=== PATIENT | male | born 1950 | race Caucasian/White ===

== ENCOUNTER → 2023-05-21 07:24 | Outpatient (REF) | payer MEDICARE, BC, SELFPAY | LOC: PAVMRI 07:24 | PROVIDERS: ATTENDING PHYSICIAN Specialist; FAMILY PHYSICIAN Internal Medicine | DX: C61 Malignant neoplasm of prostate (principal) | CPT/HCPCS: 72197; A9575 ==

== ENCOUNTER → 2024-03-23 14:03 | Outpatient (REF) | payer MEDICARE, BC, SELFPAY | LOC: CLAB 14:03 | PROVIDERS: ATTENDING PHYSICIAN Specialist | DX: C61 Malignant neoplasm of prostate (principal) | CPT/HCPCS: 88305 ==

== ENCOUNTER → 2024-12-15 08:43 | Outpatient (REF) | payer MEDICARE, BC, SELFPAY ==
[2024-12-15 11:39] LABS: Hematocrit 39.4 % (39.0-52.0); Hemoglobin 13.4 g/dL (13.0-18.0); Mean Corp Hgb Conc. 34.0 g/dL (33.0-37.0); Mean Corpuscular Volume 88.1 fL (80.0-94.0); Platelet Count 114 10^3/uL (130-400); Red Cell Dist. Width 13.0 % (11.5-14.5)
[2024-12-15 12:29] LABS: Blood Urea Nitrogen 25 mg/dl (9-20); Calcium 9.4 mg/dl (8.4-10.2); Carbon Dioxide 27 mmol/L (22-30); Chloride 108 mmol/L (98-107); Glucose 82 mg/dl (70-99); Potassium 4.3 mmol/L (3.5-5.1); Sodium 141 mmol/L (135-145); eGFR > 60.00
== END ==
LOC: SDSPAT 08:43
PROVIDERS: ATTENDING PHYSICIAN Surgery; FAMILY PHYSICIAN Internal Medicine
DX: Z01.818 Encounter for other preprocedural examination (principal)
CPT/HCPCS: 36415; 80048; 85027; 93005

== ENCOUNTER 2025-01-03 06:02 | Day surgery (SDC) | payer MEDICARE, BC, SELFPAY ==
[2024-12-15 13:39] VITALS: BMI 27.4
--- NOTE | 2024-12-15 15:02 | PTCARENOTE ---
Abnormal ECG done 12/15/[address] Alvarez, no further intervention requested.
[2025-01-03] VITALS (7 sets, daily range): BP systolic 110–133; BP diastolic 55–79; BMI 27.4
[2025-01-03] MEDS: TYLENOL 1000 MG PO (08:51)
[2025-01-03] MEDS: NORMOSOL-R/PLASMALYTE-A 1000 IV (08:52)
--- NOTE | 2025-01-03 10:52 | HP.FOC2 ---
Focused History & Physical
Chief Complaint
HPI:
Chief Complaint: Right inguinal hernia, probable left inguinal hernia
HPI / Indication for Planned Procedure: Patient is a 74-year-old male recently seen in outpatient surgical evaluation secondary to a symptomatic right inguinal hernia. He was initially told of the presence of a inguinal hernia after MRI of the
pelvis. Initially was asymptomatic but now he has developed an aching discomfort as well as a visible swelling associated with prolonged standing or exertional activities. Outpatient evaluation confirmed the presence of a reducible right inguinal
hernia as well as some laxity and a suspected left inguinal hernia which was asymptomatic for the patient. After discussions he wished to pursue operative correction and presents today for operative correction of his right inguinal hernia possible
left
Relevant Past Medical History: Other (Polymyalgia rheumatica, spinal stenosis, hypertension, hypertriglyceridemia, ED, gout, stage III CKD, HIGINIO with CPAP, pulmonary hypertension, seasonal allergies, DJD left hip, prostate cancer monitored with
active surveillance)
Relevant Social History: Negative
Relevant Family History: Negative
Relevant Past Surgical History: Positive for (Removal of liposarcoma of the back, left hip replacement, prostate biopsy and squamous cell skin cancer excision)
Review of Systems
Review of Pertinent Systems: All Systems Negative
Medication
See Medication form for detailed medications: Yes
Medication List (including Herbals & OTC):
allopurinol 300 mg tablet 300 mg PO HS 08/25/18
cholecalciferol (vitamin D3) 25 mcg (1,000 unit) tablet 5,000 units PO DAILY 08/25/18
eplerenone 25 mg tablet 50 mg PO BID 08/25/18
fluticasone propionate 50 mcg/actuation nasal spray,suspension 2 spray intranasal PRN PRN nasal congestion 08/25/18
furosemide 20 mg tablet 20 mg PO DAILY 08/25/18
metoprolol succinate 100 mg tablet,extended release 24 hr 100 mg PO BID 08/25/18
minoxidil 10 mg tablet 10 mg PO BID 08/25/18
multivitamin with folic acid 400 mcg tablet (Tab-A-Benny) 1 tab PO DAILY 08/25/18
vitamin B complex 1 tab PO DAILY 08/25/18
finasteride 5 mg tablet 5 mg PO DAILY 12/27/24
Medications Reviewed: Yes
Allergies and Reactions
Patient has Allergies: No
Noted Allergies and Reactions:
Allergy/AdvReac Type Severity Reaction Status Date / Time
No Known Allergies Allergy Verified 01/03/25 08:39
Pertinent Physical Exam
All Other Systems: Negative
Head/Neck: Normal
Lungs: Normal
Heart: Normal
Abdomen: Other (Reducible right inguinal hernia, probable left inguinal hernia)
Extremities: Normal
Neurological: Normal
Diagnosis / Assessment
74-year-old male presenting for scheduled operative correction symptomatic right inguinal hernia, possible repair left inguinal hernia
Plan / Procedure
Robotic assisted laparoscopic repair right inguinal hernia with mesh, possible left
Anesthesia/Sedation to be done by Anesthesia Provider: Yes
--- NOTE | 2025-01-03 11:07 | W.SUR.PREOP ---
Pre-Operative Surgical Note
-
I have examined this patient prior to the performance of the scheduled procedure.
The patient's condition is unchanged from the time of the current History and
Physical and the patient is able to undergo the scheduled procedure.
--- NOTE | 2025-01-03 13:36 | W.IMMPOSTOP ---
Addendum entered and electronically signed by Daniel Callahan MD 01/03/25 14:03:
#[id number]
Original Note:
Surgical Immed Post Op Note
-
Primary Surgeon: Daniel Callahan MD
Assisting Surgeon: None
Pre-op Diagnosis: Right inguinal hernia
Post-op Diagnosis: Right inguinal hernia
Procedure Performed: Robotic assisted laparoscopic FIDENCIO repair of right inguinal hernia with mesh; 3D max large mid weight
Anesthesia Type: GETA +0.25% Marcaine with epi
Specimen / Cultures: None
Estimated Blood Loss: 12 mL
Complications: None immediate
Operative Findings: Sizable right indirect inguinal hernia. Direct and femoral space normal. Moderate lipoma of spermatic cord structures reduced and excised to facilitate mesh placement. 3D max large mid weight mesh repair. Mesh secured to
Wilver's ligament with 2-0 Vicryl stitch x 2.
Left inguinal region appears normal without any visible laxity or peritoneal protrusion.
== END 2025-01-03 15:39 | disposition home or self-care (01) ==
LOC: SDS 06:02
PROVIDERS: ATTENDING PHYSICIAN Surgery; FAMILY PHYSICIAN Internal Medicine
DX: K40.90 Unilateral inguinal hernia, without obstruction or gangrene, not specified as recurrent (principal)
CPT/HCPCS: 49650; C1781